=== PATIENT | male | born 1950 | race Caucasian/White ===

== ENCOUNTER 2017-01-02 07:12 | Day surgery (SDC) | payer MEDICARE, OTHER ==
[~2017-01-02] VITALS: Ht 190.5 cm; Wt 95.0 kg
[~2017-01-02 07:12] MED LIST: ACETAMINOPHEN 500 MG TAB (TYLENOL) PO PRN; ASPI-586 PO; BSS OPHTHALMIC IRRIGATION SOLUTION 15 ML BTL ONE; CHONDROITIN/HYALURONATE (DISCOVISC) 1 ML SYR IO ONE; EPINEPHrine 1MG/ML (1:1000) 1 ML AMPUL (ADRENALIN) ONE; INSASP1U SQ; LEVO75CA2 PO; LIDOCAINE PF 1% (XYLOCAINE) 30 ML VIAL INJ ONE; LSRT50T PO; PHENYLEPHRINE/KETOROLAC 4 ML VIAL IO ONE; POVIDONE-IODINE 5% OPHTHALMIC SOLUTION (BETADINE PREP) 30 ML BTL ONE; SODIUM CHLORIDE FLUSH 3 ML SYR IV PRN; TADA10TA PO; TETRACAINE 0.5% OPHTHALMIC SOLUTION 4 ML BTL ONE; VANCOMYCIN 500 MG VIAL ONE; diphenhydrAMINE 50 MG/ML INJ (BENADRYL) IV PRN
--- OUTSIDE RECORDS SUMMARY | 2017-01-02 07:16 | XMS REPORT | Continuity of Care Document ---
Author Author [facility] Organization [facility] Address Unknown Phone Unavailable Allergies Active Description Code Type Severity Reaction Onset Reported/Identified Relationship to Patient Clinical Status Yes No Known Allergies NKMA N/A N/A 03/28/2014 Medications Problems Date Dx Coded Attending Type Code Diagnosis Diagnosed By 10/08/2014 TIFF GARDNER MD 250.00 DM2/NOS UNCOMP NSU 10/08/2014 TIFF GARDNER MD 401.9 HYPERTENSION NOS 10/08/2014 TIFF GARDNER MD 786.09 RESPIRATORY ABNORM NEC 11/11/2016 TIFF GARDNER MD E10.65 Type 1 diabetes mellitus with hyperglycemia 12/28/2016 Ot 250.00 DIAB PARMINDER WO COMPL, TYPE II OR UNSPEC TY 12/28/2016 Ot 401.9 HYPERTENSION NOS 12/28/2016 Ot 989.5 TOXIC EFFECT VENOM 12/28/2016 Ot E905.3 HORNET/WASP/BEE STING Procedures [place] [address] CARDIOVASCULAR STRESS TEST TIFF GARDNER MD 10/08/2014 78291 GLYCOSYLATED HEMOGLOBIN TEST TIFF GARDNER MD 11/11/2016 99713 ASSAY THYROID STIM HORMONE TIFF GARDNER MD 11/11/2016 Results Test Result Range TSH - 11/11/16 13:35 TSH 2.73 UIUML 0.50-6.00 Free T4 - 11/11/16 13:35 Free T4 1.13 NG/DL 0.75-1.54 Hemoglobin A1C - 11/11/16 13:35 Hemoglobin A1C 8.5 % 4.2-6.5 Encounters ACCT No. Visit Date/Time Discharge Status Pt. Type Provider Facility Loc./Unit Complaint [id number] 09/06/2013 08:03:00 09/06/2013 23 :59:59 CLS Outpatient
[2017-01-02 07:23] VITALS: BP 150/84
[2017-01-02] MEDS ORDERED: LOVA40TA2 PO (07:33)
[2017-01-02] MEDS: LIDOCAINE 3.5% OPHTH GEL (AKTEN) 1 ML BTL OD SCH ×4 (07:46→08:20)
[2017-01-02] MEDS: CATARACT PRE-OP EYE DROPS 0.5ML SYRINGE OD SCH ×3 (07:56→08:20)
[2017-01-02] MEDS: HOME MEDICATION OD SCH ×3 (07:56→08:20)
[2017-01-02] MEDS ORDERED: MIDAZOLAM 2 MG/2 ML (VERSED) VIAL ONE (08:37)
[2017-01-02] MEDS ORDERED: CHONDROITIN/HYALURONATE (VISCOAT) 0.5 ML SYR IO ONE (08:51)
[2017-01-02] MEDS ORDERED: ACETYLCHOLINE CHLORIDE 20 MG/2 ML KIT IO ONE (09:03)
[2017-01-02 09:27] VITALS: BP 133/69
== END 2017-01-02 09:47 | disposition home or self-care (01) ==
LOC: ASC 07:12
PROVIDERS: ATTEND Ophthalmology
DX: H26.9 Unspecified cataract (principal); H57.03 Miosis; E10.319 Type 1 diabetes mellitus with unspecified diabetic retinopathy without macular edema; E03.9 Hypothyroidism, unspecified; E78.4 Other hyperlipidemia
CPT/HCPCS: 66982; A9270; C9447; J0171; J2001; J2250; J3370; V2632

== ENCOUNTER 2017-01-16 07:43 | Day surgery (SDC) | payer MEDICARE, OTHER ==
[~2017-01-16] VITALS: Ht 190.5 cm; Wt 94.0 kg
[~2017-01-16 07:43] MED LIST changes: +LOVA40TA2 PO
--- OUTSIDE RECORDS SUMMARY | 2017-01-16 07:46 | XMS REPORT | Continuity of Care Document ---
Author Author [facility] Organization [facility] Address Unknown Phone Unavailable Allergies Active Description Code Type Severity Reaction Onset Reported/Identified Relationship to Patient Clinical Status Yes No Known Allergies NKMA N/A N/A 03/28/2014 Yes antihistamines antihistamines Unknown N/A 12/30/2016 Yes Antihistamines - Piperidine [id number] Drug Allergy Unknown N/A 01/12/2017 Medications Problems Date Dx Coded Attending Type [...] EFFECT VENOM 12/28/2016 Ot E905.3 HORNET/WASP/BEE STING 01/02/2017 MALIK BERMAN MD V Ot E03.9 HYPOTHYROIDISM, UNSPECIFIED 01/02/2017 MALIK BERMAN MD V Ot E10.319 TYPE 1 DIABETES W UNSP DIABETIC RTNOP W / 01/02/2017 MALIK BERMAN MD V Ot E78.4 OTHER HYPERLIPIDEMIA 01/02/2017 MALIK BERMAN MD V Ot H26.9 UNSPECIFIED CATARACT 01/02/2017 MALIK BERMAN MD V Ot H57.03 MIOSIS 01/10/2017 MALIK BERMAN MD V Ot E03.9 HYPOTHYROIDISM, UNSPECIFIED 01/10/2017 ANTONELLA PIZANO MALIK V Ot E10.319 TYPE 1 DIABETES W UNSP DIABETIC RTNOP W / 01/10/2017 MALIK BERMAN MD V Ot E78.4 OTHER HYPERLIPIDEMIA 01/10/2017 MALIK BERMAN MD, V Ot H26.9 UNSPECIFIED CATARACT 01/10/2017 MALIK BERMAN MD, V Ot H57.03 MIOSIS 01/10/2017 MALIK BERMAN MD, V Ot E03.9 HYPOTHYROIDISM, UNSPECIFIED 01/10/2017 MALIK BERMAN MD, V Ot E10.319 TYPE 1 DIABETES W UNSP DIABETIC RTNOP W / 01/10/2017 MALIK BERMAN MD, V Ot E78.4 OTHER HYPERLIPIDEMIA 01/10/2017 MALIK BERMAN MD, V Ot H26.9 UNSPECIFIED CATARACT 01/10/2017 MALIK BERMAN MD, V Ot H57.03 MIOSIS 01/12/2017 Ot 250.00 DIAB PARMINDER WO COMPL, TYPE II OR UNSPEC TY 01/12/2017 Ot 401.9 HYPERTENSION NOS 01/12/2017 Ot 989.5 TOXIC EFFECT VENOM 01/12/2017 Ot E905.3 HORNET/WASP/BEE STING 01/13/2017 Ot 250.00 DIAB PARMINDER WO COMPL, TYPE II OR UNSPEC TY 01/13/2017 Ot 401.9 HYPERTENSION NOS 01/13/2017 Ot 989.5 TOXIC EFFECT VENOM 01/13/2017 Ot E905.3 HORNET/WASP/BEE STING Procedures Code Description [place] [address] CARDIOVASCULAR STRESS TEST TIFF GARDENR MD 10/08/2014 69981 GLYCOSYLATED HEMOGLOBIN TEST TIFF GARDNER MD 11/11/2016 78921 ASSAY THYROID STIM HORMONE TIFF GARDNER MD 11/11/2016 Results Test Result Range TSH - 11/11/16 13:35 TSH 2.73 UIUML 0.50-6.00 Free T4 - 11/11/16 13:35 Free T4 1.13 NG/DL 0.75-1.54 Hemoglobin A1C - 11/11/16 13:35 Hemoglobin A1C 8.5 % 4.2-6.5 Encounters ACCT No. Visit Date/Time Discharge Status Pt. Type Provider Facility Loc./Unit Complaint [id number] 09/06/2013 08:03:00 09/06/2013 23 :59:59 CLS Outpatient
[2017-01-16 07:52] VITALS: BP 140/78
[2017-01-16] MEDS ORDERED: EPINEPHrine 1MG/ML (1:1000) 1 ML AMPUL (ADRENALIN) ONE (08:10)
[2017-01-16] MEDS: LIDOCAINE 3.5% OPHTH GEL (AKTEN) 1 ML BTL OS SCH ×4 (08:24→08:55)
[2017-01-16] MEDS: CATARACT PRE-OP EYE DROPS 0.5ML SYRINGE OS SCH ×3 (08:35→08:56)
[2017-01-16] MEDS: HOME MEDICATION OS SCH ×3 (08:35→08:58)
[2017-01-16] MEDS ORDERED: MIDAZOLAM 2 MG/2 ML (VERSED) VIAL ONE ×2 (09:18→09:37)
[2017-01-16] MEDS ORDERED: ACETYLCHOLINE CHLORIDE 20 MG/2 ML KIT IO ONE (09:29)
[2017-01-16] MEDS ORDERED: CHONDROITIN/HYALURONATE (VISCOAT) 0.5 ML SYR IO ONE (09:29)
[2017-01-16 10:19] VITALS: BP 110/64
== END 2017-01-16 10:37 | disposition home or self-care (01) ==
LOC: ASC 07:43
PROVIDERS: ATTEND Ophthalmology
DX: H25.12 Age-related nuclear cataract, left eye (principal); I10 Essential (primary) hypertension; E11.9 Type 2 diabetes mellitus without complications; E03.9 Hypothyroidism, unspecified; Z79.4 Long term (current) use of insulin
CPT/HCPCS: 66982; A9270; C9447; J0171; J2001; J2250; J3370; V2632